=== PATIENT | female | born 1955 | race African-American/Black ===

== ENCOUNTER 2018-11-15 18:13 | Emergency (ER) | payer OTHER ==
[~2018-11-15] VITALS: Ht 157.5 cm; Wt 75.0 kg
[2018-11-15] MEDS ORDERED: SODIUM CHLORIDE 0.9% 1,000 ML IV SCH (18:47)
[2018-11-15] MEDS ORDERED: METHYLPREDNISOLONE SOD SUCC 125 MG/2 ML VIAL IV ONE (19:00)
[2018-11-15] MEDS ORDERED: EPINEPHRINE 1:1000 1 MG/ML AMP IM ONE (19:00)
[2018-11-15] MEDS ORDERED: DIPHENHYDRAMINE 50MG/ML VIAL IV ONE ×2 (19:00→20:15)
[2018-11-15 21:11] VITALS: BP 157/71
== END 2018-11-15 21:14 | disposition home or self-care (01) ==
LOC: ER 18:13
DX: T78.1XXA Other adverse food reactions, not elsewhere classified, initial encounter (principal); R22.0 Localized swelling, mass and lump, head; X58.XXXA Exposure to other specified factors, initial encounter
CPT/HCPCS: 96372; 96374; 96375; 96376; 99283; J1200; J2930; J3490

== ENCOUNTER 2020-01-30 16:49 | Emergency (ER) | payer OTHER ==
[~2020-01-30] VITALS: Ht 157.5 cm; Wt 69.0 kg
[2020-01-30] MEDS ORDERED: SODIUM CHLORIDE 0.9% 1,000 ML IV SCH (17:17)
[2020-01-30] MEDS ORDERED: METHYLPREDNISOLONE SOD SUCC 125 MG/2 ML VIAL IV ONE (17:30)
[2020-01-30] MEDS ORDERED: DIPHENHYDRAMINE 50MG/ML VIAL IV ONE (17:30)
[2020-01-30] MEDS ORDERED: FAMOTIDINE 20MG/2ML VIAL IV ONE (17:30)
[2020-01-30 19:15] VITALS: BP 138/85
== END 2020-01-30 20:43 | disposition home or self-care (01) ==
LOC: ER 16:49
DX: T78.1XXA Other adverse food reactions, not elsewhere classified, initial encounter (principal); L29.8 Other pruritus; R60.0 Localized edema; R03.0 Elevated blood-pressure reading, without diagnosis of hypertension; E78.00 Pure hypercholesterolemia, unspecified; X58.XXXA Exposure to other specified factors, initial encounter
CPT/HCPCS: 93005; 96374; 96375; 99284; J1200; J2930; J3490

== ENCOUNTER 2022-01-07 19:24 | Inpatient (IN) | payer OTHER ==
[~2022-01-07] VITALS: Ht 157.5 cm; Wt 86.2 kg
[2022-01-07] MEDS ORDERED: FAMOTIDINE 20MG TABLET PO ONE (20:00)
[2022-01-07] MEDS ORDERED: EPINEPHRINE 1:1000 1 MG/ML AMP IM ONE (20:00)
[2022-01-07] MEDS: ALBUTEROL (0.083%) 2.5MG/3ML NEB HHN SCH ×3 (20:58→21:50)
[2022-01-07 21:26] LABS: BASOPHILS % 0.7 % (0.0-2.0); EOSINOPHILS % 0.1 % (0.0-5.0); HEMATOCRIT. 38.8 % (36.0-48.0); HEMOGLOBIN. 13.1 g/dL (12.0-16.0); LYMPHOCYTES % 23.4 % (20.0-50.0); MEAN CORPUSCULAR HEMOGLOBIN 30.6 pg (28.0-32.0); MEAN CORPUSCULAR VOLUME 90.9 fL (81.0-99.0); MEAN PLATELET VOLUME 8.2 fl (7.4-10.4); MONOCYTES % 2.1 % (2.0-8.0); NEUTROPHILS % 73.7 % (40.0-76.0); PLATELET 328 x1000/uL (130-400); RED BLOOD CELL COUNT 4.27 mill/uL (4.2-5.4); RED CELL DISTRIBUTION WIDTH 12.9 % (11.6-14.6)
[2022-01-07 21:32] LABS: CHLORIDE 109 mEq/L (98-107)
[2022-01-07] MEDS ORDERED: POTASSIUM CHLORIDE 20MEQ TABLET SR PO ONE (21:45)
[2022-01-07] MEDS ORDERED: ASPIRIN 325MG EC TABLET PO ONE (21:45)
[2022-01-07] MEDS ORDERED: KCL 10MEQ/50ML PREMIX 50 ML IV ONE (21:45)
[2022-01-07] MEDS ORDERED: NITROGLYCERIN 0.4MG TABLET SL SL ONE (22:45)
[2022-01-08] MEDS ORDERED: ONDANSETRON HCL 4MG/2ML INJ IV PRN (06:15)
[2022-01-08] MEDS ORDERED: DIPHENHYDRAMINE 50MG/ML VIAL IV PRN (06:15)
[2022-01-08] MEDS ORDERED: CLONIDINE 0.1MG TABLET PO PRN (06:15)
[2022-01-08] MEDS ORDERED: HYDROMORPHONE HCL/PF 2MG/ML CPJ IV PRN (06:15)
[2022-01-08] MEDS ORDERED: ACETAMINOPHEN 325MG TABLET PO PRN (06:15)
[2022-01-08] MEDS ORDERED: IPRATROPIUM/ALBUTEROL 0.5-3(2.5)MG/3ML NEB HHN PRN (06:15)
[2022-01-08] MEDS ORDERED: MAGNESIUM/ALUMINUM HYDROXIDE/SIMETHICONE 30ML UDC PO PRN (06:15)
[2022-01-08] MEDS ORDERED: NALOXONE HCL 0.4MG/ML VIAL IV PRN (07:30)
[2022-01-08] MEDS: ENOXAPARIN 40MG/0.4ML SYR SUBCUT SCH (09:00)
[2022-01-08] MEDS: ASPIRIN 81MG EC TABLET PO SCH (09:00)
[2022-01-08 16:07] LABS: CHLORIDE 111 mEq/L (98-107)
[2022-01-08 21:00] VITALS: BP 154/61
[2022-01-08] MEDS ORDERED: PRED10TA PO ×2 (21:07)
[2022-01-08] MEDS ORDERED: P20 PO (21:07)
[2022-01-08] MEDS ORDERED: EPIN0.3A3 IM (21:14)
[2022-01-08] MEDS ORDERED: MELO-106 PO (21:14)
[2022-01-08] MEDS ORDERED: DIPH25TA23 PO (21:14)
[2022-01-08] MEDS ORDERED: LEVO88TA7 PO (21:14)
[2022-01-08] MEDS ORDERED: XALAO EACHEYE (21:14)
[2022-01-08] MEDS ORDERED: FLUT9.9S BOTHNSTRLS (21:14)
[2022-01-08] MEDS ORDERED: NITR0.4T49 SL (21:14)
[2022-01-08] MEDS ORDERED: ATOR10TA69 PO (21:14)
[2022-01-08 21:53] VITALS: BP_SYST 150; BP_SYST 154; BP_DIAS 61; BP_DIAS 66
[2022-01-08] MEDS ORDERED: TOLT2TAB18 PO (22:48)
[2022-01-08] MEDS ORDERED: [UNRECOGNIZED DRUG - CODE] MT (22:48)
[2022-01-08] MEDS ORDERED: PEPP90CA MT (22:48)
[2022-01-08] MEDS ORDERED: METO-396 PO (22:48)
[2022-01-08] MEDS ORDERED: OMEP20TA2 PO (22:48)
[2022-01-08 23:30] VITALS: BP 120/57
[2022-01-09 04:00] VITALS: BP 121/55
[2022-01-09 08:00] VITALS: BP 129/58
[2022-01-09] MEDS: ENOXAPARIN 40MG/0.4ML SYR SUBCUT SCH (09:00)
[2022-01-09] MEDS: ASPIRIN 81MG EC TABLET PO SCH (09:00)
[2022-01-09 09:03] LABS: CHLORIDE 109 mEq/L (98-107)
[2022-01-09 09:08] LABS: BASOPHILS % 0.1 % (0.0-2.0); EOSINOPHILS % 0.1 % (0.0-5.0); HEMATOCRIT. 40.7 % (36.0-48.0); HEMOGLOBIN. 13.6 g/dL (12.0-16.0); LYMPHOCYTES % 13.5 % (20.0-50.0); MEAN CORPUSCULAR HEMOGLOBIN 30.8 pg (28.0-32.0); MONOCYTES % 2.2 % (2.0-8.0); NEUTROPHILS % 84.1 % (40.0-76.0); RED BLOOD CELL COUNT 4.42 mill/uL (4.2-5.4); RED CELL DISTRIBUTION WIDTH 13.2 % (11.6-14.6)
[2022-01-09 09:11] LABS: LDL CHOLESTEROL 115 mg/dL (5-100)
[2022-01-09 09:13] LABS: HDL CHOLESTEROL 79 mg/dL (40-59)
[2022-01-09 12:00] VITALS: BP 135/42
[2022-01-09 13:16] VITALS: BP 135/42
== END 2022-01-09 14:11 | disposition home or self-care (01) | DRG 923 ==
LOC: ER 19:24 → MICUSO 01-08 01:09 → 5WST 01-08 19:39
PROVIDERS: ADMIT Hospitalist; ATTEND Hospitalist
DX: T78.1XXA Other adverse food reactions, not elsewhere classified, initial encounter (principal); R07.89 Other chest pain; E03.9 Hypothyroidism, unspecified; E78.00 Pure hypercholesterolemia, unspecified; R77.8 Other specified abnormalities of plasma proteins; X58.XXXA Exposure to other specified factors, initial encounter; Z20.822 Contact with and (suspected) exposure to COVID-19; E78.5 Hyperlipidemia, unspecified; I10 Essential (primary) hypertension; J45.909 Unspecified asthma, uncomplicated; Z88.2 Allergy status to sulfonamides; Z88.8 Allergy status to other drugs, medicaments and biological substances; Z88.1 Allergy status to other antibiotic agents; Z91.040 Latex allergy status; Z91.013 Allergy to seafood
CPT/HCPCS: 36415; 71045; 80048; 80053; 80061; 82550; 83880; 84484; 85025; 87426; 93005; 93306; 93970; 94640; 99285; J1200; J1650; J3480; J3490